=== PATIENT | female | born 1980 | race Caucasian/White ===

== ENCOUNTER 2016-05-20 13:57 | Inpatient (IN) | payer BC ==
[2016-05-20] MEDS ORDERED: INSULIN REGULAR HUMAN REC 100 UNITS in NORMAL SALINE 100 ML IV PRN (14:36)
[2016-05-20] MEDS ORDERED: RINGERS SOLUTION,LACTATED 1,000 ML IV ONE (14:36)
[2016-05-20] MEDS ORDERED: LIDOCAINE HCL 50 ML VIAL PERI PRN (14:36)
[2016-05-20] MEDS ORDERED: OXYTOCIN/DEXTROSE 5%-WATER 30 UNITS/500 ML BAG IV ONE (14:36)
[2016-05-20] MEDS: MISOPROSTOL 100 MCG TABLET VG PRN ×2 (15:16→19:20)
[2016-05-20 15:26] LABS: Albumin * 2.5 gm/dl (3.4-5.0); Anion Gap 15.1 mmol/L (6.8-13.8); BUN/Creatinine Ratio 14.1 (9.0-21.6); Bilirubin, Total 0.4 mg/dL (0.0-1.1); Ca. Corrected For Albumin 10.6 mg/dL (8.4-10.2); Calcium * 9.7 mg/dL (7.9-10.9); Potassium 4.1 mmol/L (3.4-4.6); Total Protein 6.7 gm/dL (6.2-8.2)
--- NOTE | 2016-05-20 23:47 | PN ---
Progess Note - Interim Narrative: 05/20/16 23:46 Patient rating contractions 08/05. Vital signs stable. Status post 2 doses of Cytotec 25 g. FHT: 140 baseline, reassuring Contractions q 1-3 min Cervix: /-1 Impression: Intrauterine at 37-5/7 weeks induction of labor for intrahepatic cholestasis of Plan: Continue present plan
[2016-05-21] MEDS ORDERED: RINGERS SOLUTION,LACTATED 1,000 ML IV PRN (07:23)
[2016-05-21] MEDS ORDERED: NALOXONE HCL 1 MG/1 ML SYRG IV PRN (07:52)
[2016-05-21] MEDS ORDERED: ONDANSETRON HCL/PF 2 MG/ML VIAL IV PRN (07:52)
[2016-05-21] MEDS ORDERED: BUPIVACAINE HCL/0.9 % NACL/PF 250 ML EP PRN (07:52)
[2016-05-21] MEDS ORDERED: fentaNYL CITRATE/PF 50 MCG/ML AMPUL IT SCH (08:00)
[2016-05-21] MEDS: DEXTROSE 5%-LACTATED RINGERS 1,000 ML IV PRN ×2 (08:26→16:44)
--- NOTE | 2016-05-21 08:31 | OR ---
Anesthesia Procedure Note - Anesthesia Procedure Note Narrative: Vital Signs - Last Taken Temp 36.3 C L 11/05/15 14:36 Pulse Resp BP 127/70 11/05/15 14:36 Pulse Ox 05/21/16 08:30 ANESTHESIA PROCEDURE NOTE Date of Procedure: 05/21/2016 Time of procedure: 0800. Performed by: David Quezada CRNA Stretch Box Tender: None. Preprocedure diagnosis: Active labor. Post procedure diagnosis: Same. Procedure: Insertion of labor epidural. Indications: The patient is a 36 -year-old prima para female in active labor requesting labor epidural for pain management. Findings: See below. Details of the procedure: The patient was placed in a sitting position. Back was prepped with DuraPrep. Patient was then draped in a sterile fashion. Lidocaine 1% was infiltrated to the skin and subcutaneous tissues at the level of the L3 4 interspace. The epidural space was identified using a 18-gauge Tuohy needle with [id number] technique. 20 mcg fentanyl was given intrathecally using a 27 ga. spinal needle. Epidural catheter was inserted without difficulty. Negative test dose was elicited using 5 mL of 1.5% preservative-free lidocaine plus epinephrine 1 200,000. The epidural catheter was then taped and secured in place. EBL: Minimal. Fluids: N/A. Specimen: N/A. Post procedure condition: The patient tolerated the procedure well. No complications were noted. Thank you for this consultation. Romero CRNA
--- NOTE | 2016-05-21 12:53 | PN ---
Progess Note - Interim Narrative: 05/21/16 12:52 Patient comfortable with epidural Vital signs stable. Pitocin at 12 mu/min. Blood sugars less than 110 FHT:150 baseline, reassuring Contractions q 2-3 min Cervix: 4-5/90/-2 Impression: Intrauterine at 37 5/7 weeks induction of labor for IHCP, gestational diabetes-stable Plan: Continue present plan
--- NOTE | 2016-05-21 17:25 | PN ---
Progess Note - Interim Narrative: 05/21/16 17:23 Patient comfortable with epidural Vital signs stable. Pitocin at 14 mu/min. FHT:150 baseline, reassuring Contractions q 2-3 min Cervix: Complete/-1 Impression: Intrauterine at 37-6/7 weeks induction of labor for IHCP, gestational diabetes stable Plan: We'll labor patient down for a period of time and then begin pushing
--- NOTE | 2016-05-21 20:37 | OR ---
Operative Report - Dictated Report Narrative: Spontaneous vaginal delivery of viable male at 1955 on 05/21/2016 with Apgars 7 and 9, weighing 3412 g in KAYLA position with nuchal cord 1. Cord clamping delayed 1 minute. Infant's left hand delivered with the chin. Placenta delivered complete, intact, with three vessel cord Estimated blood loss: 100 mL Lacerations: 3 cm second degree vaginal laceration repaired with 3-0 Vicryl Rapide History for MU Definition: * The number of deliveries resulting in a live the patient experienced prior to current hospitalization * The previous delivery of live twins or any live multiple gestation is considered one live event. *If primagravida or nulliparous is documented select zero for the number of previous live births. Live Events: 0
[2016-05-21] MEDS ORDERED: BISACODYL 10 MG SUPP.RECT RC PRN (20:40)
[2016-05-21] MEDS ORDERED: HYDROCORTISONE 30 APPL TUBE TP PRN (20:40)
[2016-05-21] MEDS ORDERED: BENZOCAINE/MENTHOL 81 SPRAY CAN TP PRN (20:40)
[2016-05-21] MEDS ORDERED: SENNOSIDES 8.6 MG TABLET PO PRN (20:40)
[2016-05-21] MEDS ORDERED: OXYTOCIN/DEXTROSE 5%-WATER 30 UNITS/500 ML BAG IV ONE (20:40)
[2016-05-21] MEDS ORDERED: oxyCODONE HCL/ACETAMINOPHEN 1 TAB TABLET PO PRN (20:40)
[2016-05-21] MEDS: GLYCERIN/WITCH HAZEL LEAF 40 APPL BOX TP PRN (21:15)
[2016-05-21] MEDS: IBUPROFEN 800 MG TABLET PO PRN (22:39)
[2016-05-21] MEDS: oxyCODONE HCL/ACETAMINOPHEN 1 TAB TABLET PO PRN (22:40)
[2016-05-22] MEDS: DOCUSATE SODIUM 100 MG CAPSULE PO SCH ×3 (03:08→22:02)
[2016-05-22] MEDS: oxyCODONE HCL/ACETAMINOPHEN 1 TAB TABLET PO PRN ×5 (03:43→22:02)
[2016-05-22] MEDS: PRENATAL VIT#96/FERROUS FUM/FA 1 TAB TABLET PO SCH (08:27)
[2016-05-22] MEDS: IBUPROFEN 800 MG TABLET PO PRN ×3 (08:28→22:03)
--- NOTE | 2016-05-22 13:42 | PN ---
Subjective - Date and Time Seen Date: 05/22/16 Time: 13:39 Objective - Vitals Vitals: Last Vital Signs Temp 36.2 C L 05/22/16 12:37 Pulse 69 05/22/16 12:37 Resp 16 05/22/16 12:37 BP 138/80 05/22/16 12:37 Pulse Ox 96 05/22/16 12:37 FBS 86. 1h PP 166 Patient denies complaints. Lochia wnl Abdomen - soft, nontender Uterus - firm, at umbilicus - 1 No calf tenderness Impression: day #1 - s/p spontaneous vaginal delivery. Intrahepatic cholestasis of - resolving. Gestational diabetes - improving some Plan: Repeat fasting and one-hour postprandial blood sugar in a.m. Snudeep Physician Documentation - Urinary Catheter Management Urethral (Ball) Date of Insertion: 05/21/16 Time of Insertion: 09:06 Date of Removal: 05/21/16 Time of Removal: 19:43
[2016-05-22] MEDS: GLYCERIN/WITCH HAZEL LEAF 40 APPL BOX TP PRN (22:05)
[2016-05-23] MEDS: oxyCODONE HCL/ACETAMINOPHEN 1 TAB TABLET PO PRN ×3 (02:16→10:41)
[2016-05-23 06:51] VITALS: BP 131/75
[2016-05-23] MEDS: PRENATAL VIT#96/FERROUS FUM/FA 1 TAB TABLET PO SCH ×2 (07:25→08:01)
[2016-05-23] MEDS: DOCUSATE SODIUM 100 MG CAPSULE PO SCH ×2 (07:25→08:01)
[2016-05-23] MEDS: IBUPROFEN 800 MG TABLET PO PRN (07:25)
--- NOTE | 2016-05-23 11:17 | PN ---
Subjective - Date and Time Seen Date: 05/23/16 Time: 11:16 Objective - Vitals Vitals: Last Vital Signs Temp 36.7 C 05/23/16 06:38 Pulse 92 05/23/16 06:38 Resp 16 05/23/16 06:38 BP 131/75 05/23/16 06:38 Pulse Ox 98 05/23/16 06:38 Patient denies complaints. Breast feeding. Lochia wnl Abdomen - soft, nontender Uterus - firm, at umbilicus - 2 No calf tenderness Impression: day #2 - s/p spontaneous vaginal delivery. Plan: Routine discharge instructions Cauti Physician Documentation - Urinary Catheter Management Urethral (Ball) Date of Insertion: 05/21/16 Time of Insertion: 09:06 Date of Removal: 05/21/16 Time of Removal: 19:43
== END 2016-05-23 12:00 | disposition home or self-care (01) | DRG 775 ==
LOC: OB 13:57
PROVIDERS: ADMIT Obstetrics & Gynecology; ATTEND Obstetrics & Gynecology
PROC: 10E0XZZ Delivery of Products of Conception, External Approach (ICD-10-PCS; principal; 2016-05-21)
PROC: 4A1HXCZ Monitoring of Products of Conception, Cardiac Rate, External Approach (ICD-10-PCS; 2016-05-21)
PROC: 3E0S3CZ (ICD-10-PCS; 2016-05-21)
DX: O24.420 Gestational diabetes mellitus in childbirth, diet controlled (principal); K83.1 Obstruction of bile duct; O26.62 Liver and biliary tract disorders in childbirth; Z68.41 Body mass index [BMI] 40.0-44.9, adult; O99.214 Obesity complicating childbirth; E66.01 Morbid (severe) obesity due to excess calories; O69.81X0 Labor and delivery complicated by cord around neck, without compression, not applicable or unspecified; Z3A.38 38 weeks gestation of pregnancy; Z37.0 Single live birth

== ENCOUNTER 2016-05-25 22:21 | Emergency (ER) | payer BC ==
[2016-05-25] MEDS ORDERED: NORMAL SALINE 1,000 ML IV ONE (23:52)
--- NOTE | 2016-05-26 00:02 | ERNOTE ---
Dizziness ER Record Date of Service: 05/25/16 Presenting Symptoms: other - light headed Time Seen by Provider: 05/25/16 23:51 Source: patient Exam Limitations: no limitations Immunizations: IMMUNIZATION HX Immunizations Up to Date Yes History of Influenza Vaccine Yes Hx Pneumococcal Vaccination No Allergies/Adverse Reactions: Allergies Allergy/AdvReac Type Severity Reaction Status Date / Time tramadol HCl [From Ultram] Allergy Mild Hives Verified 05/06/16 11:19 codeine [Codeine] AdvReac Mild HEMOPTYSIS Verified 05/06/16 11:19 Home Medications: HOME MEDICATIONS Pnv95/Ferrous Fumarate/FA [ Caplet] 1 each PO DAILY 10/22/15 [Last Taken 05/18/16] Ibuprofen [Motrin] 200 - 800 mg PO Q6H PRN #100 tab 05/21/16 [Last Taken Unknown ] - History of Present Illness Narrative: At about 2000 hours she began to feel light headed which is exacerbated by standing. There has not been any complaints of shortness of breath, fevers/ chills, N/V/D. There has been some mild back pain that is located at the upper left back, that is mild. She has taken Tylenol prior to coming to the ED. s/p vaginal delivery on Friday that was complicated by a significant vaginal tear. Denies any history of PE/DVT or coughing. Timing and Duration: sudden onset Noted on awakening:: No Severity: max: mild Severity: currently: mild Associated Symptoms: Absent: nausea, vomiting Sense of movement: Present: other. Absent: spinning, falling, vague, distinct Fainted/near fainted while:: Absent: standing, sitting Usually:: Present: walks w/o assistance Modifying Factors - (Improves): Reports: other Modifying Factors - (Worsens): Reports: other - standing Prior Treament: Reports: treated by physician Review of Systems - Review of Systems Constitutional: Present: no symptoms reported EYE: Present: no symptoms reported ENT: Present: no symptoms reported Respiratory: Present: no symptoms reported Cardiology: Present: no symptoms reported Gastrointestinal/Abdominal: Present: no symptoms reported Genitourinary: Present: no symptoms reported Musculoskeletal: Present: no symptoms reported Skin: Present: no symptoms reported Neurological: Present: no symptoms reported Endocrine: Present: no symptoms reported Hematologic/Lymphatic: Present: no symptoms reported Psych: Present: no symptoms reported - Patient's Past Medical History Patient History - Medical: Migraines Patient History - Cardiac/Respiratory: No pertinent hx Patient History - Cancer: No Hx of Cancer Patient History - Surgical Procedures: Cholecystectomy, D & C Patient History - Other: None - Social History Living Situations: alone Smoking Status: Former smoker Have you smoked in the past 12 months: No Do you dip or chew tobacco: No Patient requests Smoking Cessation Consult: No Initiate information on Smoking Cessation: No Alcohol Use: none Drug Use: none - Immunizations Immunizations Up to Date: Yes Hx Pneumococcal Vaccination: No History of Influenza Vaccine: Yes Physical Exam - Physical Exam General Appearance: Present: no apparent distress Eye Exam: Normal inspection: bilateral Ears, Nose, Throat: Present: normal ENT inspection, hearing grossly normal Neck: Present: normal inspection Respiratory: Present: no respiratory distress Cardiovascular/Chest: Present: tachycardia Gastrointestinal/Abdominal: Present: nondistended Back Exam: Present: normal inspection Extremity Exam: Present: normal inspection Neurological Exam: Present: alert, oriented, normal mood/affect, 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 Vital Signs: Vital Signs 05/25/16 22:47 Temperature 36.8 C Pulse Rate 65 Respiratory 18 Rate Blood Pressure 156/96 O2 Sat by Pulse 98 Oximetry - Progress/Reassessment Chief Complaint: Dizziness Progress:: Unchanged Progress Note-Subjective: 05/26/16 00:01 The patient refused any lab work to be done. 05/26/16 02:18 Allowd the lab work to be done but refused the IV. The patient was instructed to drink one liter of fluids; so she drank one cup. Then told the staff that she was ready to leave. The patient was informed that it would be useful to determine if the heart rate decreased after hydration. A PE is unlikely given the lack of symptoms. The patient was more concerned about leaving the door closed that investigating her complaints. The nurse operations and maintenance supervisor was present during the last encounter with the patient, which was just prior to her signing out AMA. Departure Clinical Impression: Volume depletion - Departure Disposition: Against medical advice Condition: Good Instructions: Dehydration, Adult, [id number] Print Language: [place]ian Additional Instructions: Return to the ED as needed. Referrals: Francisco Siegel DO [Primary Care Provider] -
[2016-05-26 00:17] LABS: Hemoglobin 12.5 gm/dL (12.5-16.0); Mean Cell Volume 91.4 fl (78-100); Mean Corpuscular Hemoglobin 30.9 pg (27-31); Mean Corpuscular Hgb Conc 33.8 g/dl (32-36); Mean Platelet Volume 10.3 fl (6.0-9.5); Neutrophil % 54.6 % (42-75.0); Platelet Count 262 K/mm3 (150-450); Red Blood Count 4.05 M/mm3 (4.2-5.4); Red Cell Distribution Width 12.7 % (11.5-14.0); White Blood Count 7.4 K/mm3 (4.0-10.5)
[2016-05-26 00:24] LABS: Anion Gap 16.2 mmol/L (6.8-13.8); BUN/Creatinine Ratio 17.8 (9.0-21.6); Calcium * 9.6 mg/dL (7.9-10.9); Carbon Dioxide 23.6 mmol/L (24-32.6); Potassium 3.8 mmol/L (3.4-4.6)
[2016-05-26 02:45] VITALS: BP 140/70
== END 2016-05-26 01:29 | disposition left against medical advice (07) ==
LOC: ER 22:21
DX: E86.9 Volume depletion, unspecified (principal); Z87.891 Personal history of nicotine dependence

== ENCOUNTER 2016-06-09 20:34 | Emergency (ER) | payer BC ==
--- NOTE | 2016-06-09 21:26 | ERNOTE ---
ER Female HPI Date of Service: 06/09/16 Stated Complaint: VAGINAL PAIN.BLEEDING HAD BABY 05/21/16 Presenting Symptoms: other - patient 36-year-old female 1 para 1 with delivery 05/17/2016. Patient was second degree episiotomy with sutures placed. She's had pain in the area above since time of delivery. She's been using ibuprofen 800 mg with food every 8 hours and alternating Tylenol with the above. Patient also has been using dermoplast and witch igor along with sitz baths without significant relief. Patient reports pain remains constant and aggravated by bearing down to urinate. She's had no urinary burning or frequency but states has difficulty completing her void secondary to discomfort outlined above. Patient states it hurts just to sit secondary to the pain outlined earlier. Time Seen by Provider: 06/09/16 21:14 Source: patient Exam Limitations: no limitations Immunizations: IMMUNIZATION HX Immunizations Up to Date Yes History of Influenza Vaccine Yes Hx Pneumococcal Vaccination No Allergies/Adverse Reactions: Allergies tramadol HCl [From [facility]] Allergy (Mild, Verified 07/06/16 14:14) Hives itching codeine [Codeine] Adverse Reaction (Mild, Verified 07/06/16 14:14) HEMOPTYSIS sick Home Medications: HOME MEDICATIONS Ibuprofen [Motrin] 200 - 800 mg PO Q6H PRN #100 tab 05/21/16 [Last Taken Unknown ] Gabapentin 600 mg PO BID 06/24/16 [Last Taken Unknown] - History of Present Illness Date (Duration): 06/09/16 Time (Timing): 21:22 Timing: Present: constant Quality: Present: moderate Onset Location: Present: vaginal Radiation: Present: none Activities at Onset: Present: other - see above Prior Abdominal Problems: Present: none Sexual [place] History: Present: not active Modifying Factors - (Improves): Present: analgesics, other - patient with mild relief using treatments outlined earlier Modifying Factors - (Worsens): Present: urinating Associated Symptoms: Present: denies symptoms Prior Treatment: Present: recently seen, treated by physician Review of Systems - Review of Systems Constitutional: Present: no symptoms reported EYE: Present: no symptoms reported ENT: Present: no symptoms reported Respiratory: Present: no symptoms reported Cardiology: Present: no symptoms reported Gastrointestinal/Abdominal: Present: no symptoms reported Genitourinary: Present: pain, other - patient continues to have persistent vaginal bleeding since time of delivery with his friend gradually decreasing in amount. Musculoskeletal: Present: no symptoms reported Skin: Present: no symptoms reported Neurological: Present: no symptoms reported Endocrine: Present: no symptoms reported Hematologic/Lymphatic: Present: no symptoms reported Psych: Present: no symptoms reported - Patient's Past Medical History Patient History - Medical: No pertinent hx, Migraines Patient History - Cardiac/Respiratory: No pertinent hx Patient History - Cancer: No Hx of Cancer Patient History - Surgical Procedures: Cholecystectomy, D & C Patient History - Other: None - Social History Living Situations: home Abuse History: No History of abuse Psych History: No pertinent hx Smoking Status: Never smoker Have you smoked in the past 12 months: No Do you dip or chew tobacco: No Alcohol Use: none Drug Use: none - Immunizations Immunizations Up to Date: Yes Hx Pneumococcal Vaccination: No History of Influenza Vaccine: Yes Physical Exam - Physical Exam General Appearance: Present: wd/wn, alert, mild distress Eye Exam: Normal inspection: bilateral, PERRL: bilateral, EOMI: bilateral Ears, Nose, Throat: Present: normal ENT inspection, H, normal pharynx Neck: Present: normal inspection, nontender Respiratory: Present: no respiratory distress, normal breath sounds, no accessory muscle use, chest nontender, lungs clear Cardiovascular/Chest: Present: regular rate, rhythm, no murmur, normal peripheral pulses Peripheral Pulses: N=norm/S=strong/W=weak/B=bound/A=absent: Carotid (R): Normal , Carotid (L): Normal, Dorsalis-pedis (R): Normal, Dorsalis-pedis (L): Normal Gastrointestinal/Abdominal: Present: normal bowel sounds, nontender, nondistended, soft, no organomegaly Rectal Exam: Present: deferred Back Exam: Present: normal inspection, normal range of motion, no CVA tenderness , no vertebral tenderness Extremity Exam: Present: normal inspection, non-tender, no edema, normal range of motion Neurological Exam: Present: alert, oriented, normal mood/affect, no motor/ sensory deficits Lymphatic Exam: Present: no adenopathy ED Progress - Date and Time Seen: Date and Time: 06/09/16 22:36 Vaginal exam shows no tear labial folds or other vaginal structures. Urinalysis is negative. Patient without symptomatic relief from topical lidocaine utilized during above examination. - Results and Orders Patient's Lab Results:: I have reviewed the patient's lab results. - Vital Signs Patient's Vital Signs:: I have reviewed the patient's vital signs. Vital Signs: Vital Signs 06/09/16 20:39 Temperature 36.6 C Pulse Rate 73 Respiratory 14 Rate Blood Pressure 135/88 O2 Sat by Pulse 99 Oximetry - Progress/Reassessment Chief Complaint: Genitourinary Problem Departure Clinical Impression: Postoperative pain, on home postsurgical pain or - Departure Disposition: Home Follow Up Needed Condition: Good Additional Instructions: Percocet 1-2 tablets every 8 hours for vaginal pain related to recent surgical procedure. Please push fluids and activity to minimize chances of constipation. If constipation should develop please purchase [id number] stool softener. All further narcotics to be provided by her primary provider or GENERAL HARDWARE SALESPERSON Referrals: Francisco Siegel DO [Primary Care Provider] -
--- OUTSIDE RECORDS SUMMARY | 2016-06-09 21:29 | XMS REPORT | Continuity of Care Document ---
:1980 Author Organization [facility] ([facility]) Address [address] [place] [address] Phone [phone] Care Team Providers Name Role Phone Amanuel Ramirez Primary Care Provider [phone] Source Comments This disclosure is being made pursuant to the Care Everywhere program, applicable federal and state laws, and may not contain all informaitonavailable regarding this patient.[facility] ([facility]) Active Allergies and Adverse Reactions Allergen Noted Date Severity Reactions Comments Codeine 10/15/2008 Nausea & Vomiting Tramadol 07/10/2015 Rash Current Medications Prescription Sig. Disp. Refills Start Date End Date Status metFORMIN 750 mg XR Take 750 mg by Active tablet mouth 2 times daily. propranolol 60 mg XR Take 60 mg by Active capsule mouth daily. SUMAtriptan 100 mg tablet Take 100 mg by Active mouth daily as needed May repeat in 2 hours if needed . cyclobenzaprine 10 mg Take 1 tablet 9 tablet 0 07/11/2015 Active tablet (10 mg total) by mouth 3 times daily as needed. Active Problems Problem Noted Date Neck pain 02/13/2012 Left ankle pain 02/13/2012 Health education/counseling 02/13/2012 Infertility, female 11/21/2011 Routine general medical examination at a health care facility 11/21/2011 Back pain 04/10/2009 Immunizations Name Dates Previously Given Next Due Novel Influenza H1N1 04/10/2009 Tdap 11/21/2011 Social History Tobacco Use Types Packs/Day Years Used Date Current Every Day Smoker 1 10 Smokeless Tobacco: Never Used Alcohol Use Drinks/Week oz/Week Comments No 1 Shots of liquor 0.5 Last Filed Vital Signs Vital Sign Reading Time Taken Blood Pressure 149/92 07/10/2015 10:55 PM CDT Pulse 90 07/10/2015 10:55 PM CDT Temperature 36.7 C (98.1 F) 07/10/2015 10:55 PM CDT Respiratory Rate 16 07/10/2015 10:55 PM CDT Height 1.603 m (5' 3.1") 04/27/2012 1:39 PM CRATE BUILDER Weight 100.29 kg (221 lb 1.6 oz) 04/27/2012 1:39 PM CRATE BUILDER Body Mass Index 39.03 04/27/2012 1:39 PM CRATE BUILDER Oxygen Saturation 99% 07/10/2015 10:55 PM CDT Plan of Care Patient Goal Type Goal Diet Reduce sugar intake to X grams per day Weight Weight below 91 kg (200 lb) Health Maintenance Due Date Last Done Comments Hepatitis B Vaccine (1 of 3 - Primary 1980 Series) MMR Vaccine 1999 Varicella Vaccine (1 of 2 - Adult - No 1999 Evidence of Immunity) Pneumococcal Vaccine (1 of 1 - PPSV23) 2000 Cervical Cancer Screening 2011 Influenza Vaccine: Seasonal (#1) 11/27/2015 Lipid Disorder Screening 11/20/2016 11/21/2011, 04/10/2009 Td Vaccine 11/20/2021 11/21/2011, 04/10/2006 Tdap Vaccine Completed 11/21/2011, 11/21/2011 Results from Last 3 Months Not on file
[2016-06-09] MEDS ORDERED: LIDOCAINE HCL 10 APPL CARTRIDGE ONE (21:34)
[2016-06-09 22:22] LABS: Urine Bilirubin Negative (NEGATIVE); Urine Blood 25 /ul (NEGATIVE); Urine Ketone Negative (NEGATIVE); Urine Nitrite Negative (NEGATIVE); Urine Protein Negative (NEGATIVE); Urine Urobilinogen Normal (NORMAL); Urine pH 6.5 pH (5.0-7.0)
[2016-06-09 22:25] LABS: Urine Appearance Clear; Urine Bacteria None Seen; Urine Color Pale Yellow; Urine RBC 0-5 /hpf (0-5); Urine WBC 0-5 /hpf (0-5)
[2016-06-09] MEDS ORDERED: oxyCODONE HCL/ACETAMINOPHEN 1 TAB TABLET PO ONE (22:40)
[2016-06-09] MEDS ORDERED: oxyCODONE HCL/ACETAMINOPHEN 1 TAB TABLET ONE (22:49)
[2016-06-09 22:57] VITALS: BP 133/71
== END 2016-06-09 23:04 | disposition home or self-care (01) ==
LOC: ER 20:34
DX: R10.2 Pelvic and perineal pain (principal); G89.18 Other acute postprocedural pain; Z98.890 Other specified postprocedural states

== ENCOUNTER 2016-07-06 14:07 | Emergency (ER) | payer BC ==
[2016-07-06 14:14] VITALS: BP 149/109
[2016-07-06] MEDS ORDERED: KETOROLAC TROMETHAMINE 60 MG/2 ML VIAL IM ONE ×2 (14:20→14:21)
--- OUTSIDE RECORDS SUMMARY | 2016-07-06 14:30 | XMS REPORT | Continuity of Care Document ---
:1980 Author Organization [facility] ([facility]) Address [address] [place] [address] Phone [phone] Care Team Providers Name Role Phone Amanuel Ramirez Primary Care Provider [phone] Source Comments This disclosure is being made pursuant to the Care Everywhere program, applicable federal and state laws, and may not contain all informaitonavailable regarding this patient.[facility] ([facility]) Active Allergies and Adverse Reactions Allergen Noted [...] 1.603 m (5' 3.1") 04/27/2012 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
--- NOTE | 2016-07-06 15:16 | ERNOTE ---
Back Pain ER HPI Date of Service: 07/06/16 Presenting Symptoms: hx chronic back pain Time Seen by Provider: 07/06/16 14:09 Source: patient Exam Limitations: no limitations Immunizations: IMMUNIZATION HX Immunizations Up to Date Yes History of Influenza Vaccine Yes Hx Pneumococcal Vaccination No Allergies/Adverse Reactions: Allergies tramadol HCl [From Ultram] Allergy (Mild, Verified 07/06/16 14:14) Hives itching codeine [Codeine] Adverse Reaction (Mild, Verified 07/06/16 14:14) HEMOPTYSIS sick Home Medications: HOME MEDICATIONS Ibuprofen [Motrin] 200 - 800 mg PO Q6H PRN #100 tab 05/21/16 [Last Taken Unknown ] Gabapentin 600 mg PO BID 06/24/16 [Last Taken Unknown] Narrative: 36 y/o female presenting to the emergency room for right-sided flank pain and back pain. States this pain started on Friday comes and goes feels like tight stabbing pain on the right flank area. States that pain will go up to 10 at times and It will stop and go down to 0. Feels like a spasm. Patient has a history of chronic back pain. Date (Duration): 07/06/16 Timing: Reports: intermittent Quality/Severity: Reports: sharpness Location of pain: Reports: lower back - right side. does radiate to right buttock Activities at Onset: Reports: none Recent Injury?: Reports: no Possible Precipitating Factor: Reports: none Modifying Factors - (Improves): Reports: nothing Modifying Factors - (Worsens): Reports: movement flexion Associated Symptoms: Denies: fever/chills, sweating, constipation/incontinence, problems urinating, difficulty walking, lightheadedness, numbess/weakness in legs Review of Systems - Review of Systems Constitutional: Present: no symptoms reported, See HPI. Absent: fever, chills, diaphoresis, weakness, malaise EYE: Present: no symptoms reported ENT: Present: no symptoms reported Respiratory: Present: no symptoms reported Cardiology: Present: no symptoms reported Gastrointestinal/Abdominal: Present: no symptoms reported Genitourinary: Present: no symptoms reported - negative UA at walk in clinic Musculoskeletal: Present: See HPI, back pain, muscle pain. Absent: neck pain Skin: Present: no symptoms reported Neurological: Present: no symptoms reported Endocrine: Present: no symptoms reported Hematologic/Lymphatic: Present: no symptoms reported Psych: Present: no symptoms reported - Patient's Past Medical History Patient History - Medical: No pertinent hx, Chronic Pain - back, Migraines Patient History - Cardiac/Respiratory: No pertinent hx Patient History - Cancer: No Hx of Cancer Patient History - Surgical Procedures: Cholecystectomy, D & C Patient History - Other: None - Social History Living Situations: home Abuse History: No History of abuse Psych History: No pertinent hx Alcohol Use: none Drug Use: none - Immunizations Immunizations Up to Date: Yes Hx Pneumococcal Vaccination: No History of Influenza Vaccine: Yes Physical Exam - Physical Exam General Appearance: Present: wd/wn, alert, no apparent distress Eye Exam: Normal inspection: bilateral Ears, Nose, Throat: Present: normal ENT inspection Neck: Present: normal inspection Respiratory: Present: no respiratory distress Cardiovascular/Chest: Present: regular rate, rhythm Peripheral Pulses: N=norm/S=strong/W=weak/B=bound/A=absent: Dorsalis-pedis (R): Normal, Dorsalis-pedis (L): Normal Gastrointestinal/Abdominal: Present: normal bowel sounds Back Exam: Present: CVA tenderness (R), vertebral tenderness, muscle spasm - right straight leg raise reproduced pain. also flexion of right knee with internal rotation of hip and back would reproduce the pain. Extremity Exam: Present: normal inspection, no edema, decreased range of motion. Absent: joint swelling, extremity edema Neurological Exam: Present: alert, oriented, normal mood/affect, no motor/ sensory deficits Skin Exam: Present: normal color Lymphatic Exam: Present: no adenopathy ED Progress - Vital Signs Patient's Vital Signs:: I have reviewed the patient's vital signs. Vital Signs: Vital Signs 07/06/16 14:11 Temperature 36.6 C Pulse Rate 90 Respiratory 12 Rate Blood Pressure 149/109 O2 Sat by Pulse 100 Oximetry - Progress/Reassessment Chief Complaint: Back Pain Progress:: Improved Progress Note-Subjective: 07/06/16 15:12 improved with tx in ed. Departure Clinical Impression: Low back pain Qualifiers: Chronicity: unspecified Back pain laterality: right Sciatica presence: without sciatica Qualified Code(s): M54.5 - Low back pain - Departure Disposition: Home self-care Condition: Stable Instructions: Back Pain, Adult Additional Instructions: Continue [id number] pain medications. Ice or heat whichever makes it feel better. Follow up with her primary care in 2-3 days. Return to the emergency room if symptoms persist or become worse or uncontrolled with over- the-counter pain medications Referrals: Amanuel Ramirez, [Primary Care Provider] -
== END 2016-07-06 15:19 | disposition home or self-care (01) ==
LOC: ER 14:07
DX: M54.5 Low back pain (principal)

== ENCOUNTER 2016-08-20 07:56 | Emergency (ER) | payer BC, MEDICAID ==
[2016-08-20] MEDS ORDERED: PROMETHAZINE HCL 12.5 MG in DEXTROSE 5 % IN WATER 50 ML IV ONE ×2 (08:11)
[2016-08-20] MEDS ORDERED: NORMAL SALINE 1,000 ML IV ONE (08:11)
[2016-08-20] MEDS ORDERED: DEXTROSE 4 GM/TAB BTL PO ONE (08:12)
[2016-08-20] MEDS ORDERED: DEXTROSE 4 GM/TAB BTL ONE (08:13)
[2016-08-20 08:33] LABS: Hematocrit 41.8 % (37.0-47.0); Hemoglobin 14.6 gm/dL (12.5-16.0); Mean Cell Volume 88.6 fl (78-100); Mean Corpuscular Hemoglobin 30.9 pg (27-31); Mean Corpuscular Hgb Conc 34.9 g/dl (32-36); Mean Platelet Volume 10.4 fl (6.0-9.5); Neutrophil # 3.9 K/mm3 (1.3-6.0); Neutrophil % 48.2 % (42-75.0); Platelet Count 260 K/mm3 (150-450); Red Blood Count 4.72 M/mm3 (4.2-5.4); Red Cell Distribution Width 11.9 % (11.5-14.0)
[2016-08-20 08:42] LABS: Urine Appearance Clear; Urine Bacteria None Seen; Urine Bilirubin Negative (NEGATIVE); Urine Blood Negative /ul (NEGATIVE); Urine Color Yellow; Urine Ketone Negative (NEGATIVE); Urine Nitrite Negative (NEGATIVE); Urine Protein Negative (NEGATIVE); Urine RBC None Seen /hpf (0-5); Urine Specific Gravity <=1.005 SP.GR. (1.005-1.010); Urine Urobilinogen Normal (NORMAL); Urine WBC None Seen /hpf (0-5)
[2016-08-20 08:52] LABS: Albumin * 3.8 gm/dl (3.4-5.0); BUN/Creatinine Ratio 14.5 (9.0-21.6); Bilirubin, Total 0.4 mg/dL (0.0-1.1); Ca. Corrected For Albumin 9.8 mg/dL (8.4-10.2); Carbon Dioxide 25.7 mmol/L (24-32.6); Potassium 3.7 mmol/L (3.4-4.6); Total Protein 7.8 gm/dL (6.2-8.2)
--- OUTSIDE RECORDS SUMMARY | 2016-08-20 08:58 | XMS REPORT | Continuity of Care Document ---
:1980 Author Organization [facility] ([facility]) Address [address] [place] [address] Phone [phone] Care Team Providers Name Role Phone Amanuel Ramirez Primary Care Provider [phone] Source Comments This disclosure is being made pursuant to the Care Everywhere program, applicable federal and state laws, and may not contain all informaitonavailable regarding this patient.[facility] ([facility]) Active Allergies and Adverse Reactions Allergen Noted [...] 1.603 m (5' 3.1") 04/27/2012 1:39 PM [employer] Weight 100.29 kg (221 lb 1.6 oz) 04/27/2012 1:39 PM [employer] Body Mass Index 39.03 04/27/2012 1:39 PM [employer] Oxygen Saturation 99% 07/10/2015 10:55 PM CDT [...]
[2016-08-20 10:40] VITALS: BP 112/57
--- NOTE | 2016-08-20 10:53 | ERNOTE ---
Dyspnea - Date Date of Service: 08/20/16 - General Presenting Symptoms: other - dizzy Time Seen by Provider: 08/20/16 08:08 Source: patient Exam Limitations: no limitations - Immun/Allergies/Home Medications Immunizations: IMMUNIZATION HX Immunizations Up to Date Yes History of Influenza Vaccine Yes Hx Pneumococcal Vaccination No Allergies/Adverse Reactions: Allergies tramadol HCl [From Ultram] Allergy (Mild, Verified 08/20/16 08:11) Hives itching codeine [Codeine] Adverse Reaction (Mild, Verified 08/20/16 08:11) HEMOPTYSIS sick Home Medications: HOME MEDICATIONS NK [No Home Medication] 08/20/16 [Last Taken Unknown] - History of Present Illness Narrative: patient presents to the ED for feeling dizzy. She relates that this am she started to feel dizzy (lightheaded, not spinning). She noticed some very mild SOB. No focal numbness, tingling, weakness. She has mild LAND with this. She relates she has a Hx of migraines and this feels something like her migraine with aura. No fever. no recent illnesses. No focal N/T/W. No CP, no calf pain or leg swelling. no abdominal pain. no vision changes. Severity: moderate Initiating event: Reports: none. Denies: upper resp illness Frequency of episodes: Reports: other - rare Modifying Factors - (Improves): Reports: nothing Modifying Factors (Worsens): Reports: nothing Associated Symptoms-Dyspnea: Reports: dizziness. Denies: fever/chills, chest pain/discomfort, cough Prior Treatment: Denies: recently seen Review of Systems - Review of Systems Constitutional: Absent: fever EYE: Absent: vision changes ENT: Absent: ear pain, sore throat Respiratory: Present: See HPI Cardiology: Absent: chest pain Gastrointestinal/Abdominal: Absent: abdominal pain Genitourinary: Absent: dysuria Neurological: Absent: weakness All Other Systems: All systems neg except as marked - Patient's Past Medical History Patient History - Medical: Chronic Pain, Migraines Patient History - Cardiac/Respiratory: No pertinent hx Patient History - Cancer: No Hx of Cancer Patient History - Surgical Procedures: Cholecystectomy, D & C Patient History - Other: None LMP (females 10-50): last week - Social History Living Situations: home Abuse History: No History of abuse Psych History: No pertinent hx Alcohol Use: none Drug Use: none - Immunizations Immunizations Up to Date: Yes Hx Pneumococcal Vaccination: No History of Influenza Vaccine: Yes Physical Exam - Physical Exam General Appearance: Present: alert, no apparent distress Eye Exam: Normal inspection: bilateral, PERRL: bilateral Ears, Nose, Throat: Present: normal ENT inspection. Absent: abnormal TM (R), abnormal TM (L), pharyngeal erythema, dry mucous membranes Neck: Present: normal inspection, other - supple Respiratory: Present: no respiratory distress, normal breath sounds, no accessory muscle use, lungs clear Cardiovascular/Chest: Present: regular rate, rhythm Gastrointestinal/Abdominal: Present: normal bowel sounds, nondistended, soft. 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 Absent: facial droop, motor weakness Skin Exam: Present: normal color. Absent: skin rash ED Progress - Results and Orders Patient's Lab Results:: I have reviewed the patient's lab results. - Vital Signs Patient's Vital Signs:: I have reviewed the patient's vital signs. Vital Signs: Vital Signs 08/20/16 08/20/16 08/20/16 08:00 08:33 08:54 Temperature 37 C Pulse Rate 103 H 78 Respiratory 14 15 Rate Blood Pressure 157/74 143/72 157/74 O2 Sat by Pulse 96 95 Oximetry 08/20/16 08/20/16 08/20/16 09:02 09:21 09:42 Temperature Pulse Rate 89 84 103 H Respiratory 14 Rate Blood Pressure 148/77 122/68 122/81 O2 Sat by Pulse 93 94 96 Oximetry 08/20/16 08/20/16 10:12 10:35 Temperature 36.8 C Pulse Rate 84 70 Respiratory 18 14 Rate Blood Pressure 99/48 112/57 O2 Sat by Pulse 97 97 Oximetry - EKG EKG: NSR EKG read: Interp. by me EKG Comments: NSR rate 97. Non-specific ST/T wave chanegs. No STEMI. - X-Ray X-Ray #1 X-Ray: chest Interpretation: Reviewed by me X-ray Comments: I reviewed CXR report per radiology - Progress/Reassessment Chief Complaint: Dyspnea Progress Note-Subjective: 04/25/17 10:45 She was feeling much improved. Nothing to suggest ACS, PE aortic dissection. With d-dimer not elevated, no indication for Chest CT. The more she rested she felt this was a migraine with aura like she has had before. No stroke Sx. Not worst LAND of life. I discussed head CT with her but she declines this. She wishes to go home at this point. No clear life threat noted. I discussed warning signs and reasons to return as well as the need for close f/u. Departure Clinical Impression: Dizzy - Departure Disposition: Home self-care Additional Instructions: Go to your appointment with Dr Ramirez August 22 at 3pm. Rest. Fluids. Return for fever, headache, vomiting, weakness or if your condition worsens or changes in any way. Referrals: Amanuel Ramirez, [Primary Care Provider] -
== END 2016-08-20 11:04 | disposition home or self-care (01) ==
LOC: ER 07:56
DX: R42 Dizziness and giddiness (principal)

== ENCOUNTER 2016-09-17 19:17 | Emergency (ER) | payer BC, MEDICAID ==
[2016-09-17] MEDS ORDERED: ACETAMINOPHEN 500 MG TABLET PO ONE (19:38)
--- OUTSIDE RECORDS SUMMARY | 2016-09-17 19:44 | XMS REPORT | Continuity of Care Document ---
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
[2016-09-17] MEDS ORDERED: hydrOXYzine PAMOATE 25 MG CAPSULE PO ONE (19:52)
[2016-09-17] MEDS ORDERED: hydrOXYzine PAMOATE 25 MG CAPSULE ONE (19:57)
[2016-09-17 19:59] LABS: Hematocrit 39.7 % (37.0-47.0); Hemoglobin 13.7 gm/dL (12.5-16.0); Mean Cell Volume 89.4 fl (78-100); Mean Corpuscular Hemoglobin 30.9 pg (27-31); Mean Corpuscular Hgb Conc 34.5 g/dl (32-36); Mean Platelet Volume 10.2 fl (6.0-9.5); Neutrophil # 5.3 K/mm3 (1.3-6.0); Neutrophil % 63.9 % (42-75.0); Platelet Count 244 K/mm3 (150-450); Red Blood Count 4.44 M/mm3 (4.2-5.4); Red Cell Distribution Width 11.9 % (11.5-14.0); White Blood Count 8.4 K/mm3 (4.0-10.5)
--- NOTE | 2016-09-17 20:00 | ERNOTE ---
<Driss Dominguez - Last Filed: 09/17/16 19:28> Medical Problem HPI - General Chief Complaint: General Assessment Time Seen by Provider: 09/17/16 19:28 Source: patient Exam Limitations: no limitations - Immun/Allergies/Home Medications Immunizations: IMMUNIZATION HX Immunizations Up to Date Yes History of Influenza Vaccine Yes Hx Pneumococcal Vaccination No Allergies/Adverse Reactions: Allergies tramadol HCl [From Ultram] Allergy (Mild, Verified 08/20/16 08:11) Hives itching codeine [Codeine] Adverse Reaction (Mild, Verified 08/20/16 08:11) HEMOPTYSIS sick Home Medications: HOME MEDICATIONS NK [No Home Medication] 08/20/16 [Last Taken Unknown] - History of Present History Narrative: Patient was involved with a big argument with her and shows in moderate to severe emotional distress at this point. He complains of muscle spasms on the right side of the neck and some low-grade eye blurring. She is also having some back pain and at the same time. Timing: constant Severity: moderate Review of Systems - Review of Systems Constitutional: Present: See HPI EYE: Present: no symptoms reported ENT: Present: no symptoms reported Respiratory: Present: no symptoms reported Cardiology: Present: no symptoms reported Gastrointestinal/Abdominal: Present: no symptoms reported Genitourinary: Present: no symptoms reported Musculoskeletal: Present: neck pain - on the right side Skin: Present: no symptoms reported Neurological: Present: no symptoms reported Endocrine: Present: no symptoms reported Hematologic/Lymphatic: Present: no symptoms reported Psych: Present: anxiety, depressed, emotional problems - Patient's Past Medical History Patient History - Medical: Anxiety, Chronic Pain, Depression, Migraines Patient History - Cardiac/Respiratory: No pertinent hx Patient History - Cancer: No Hx of Cancer Patient History - Surgical Procedures: Cholecystectomy, D & C Patient History - Other: None - Social History Living Situations: home Abuse History: No History of abuse Psych History: Hx of Anxiety, Hx of Depression Smoking Status: Never smoker Have you smoked in the past 12 months: No Do you dip or chew tobacco: No Alcohol Use: none Drug Use: none - Immunizations Immunizations Up to Date: Yes Hx Pneumococcal Vaccination: No History of Influenza Vaccine: Yes Physical Exam - Physical Exam General Appearance: Present: wd/wn, alert, moderate distress Eye Exam: Normal inspection: bilateral, PERRL: bilateral Ears, Nose, Throat: Present: normal ENT inspection, H, normal pharynx Neck: Present: tender lateral - right lateral neck region Respiratory: Present: no respiratory distress, normal breath sounds, no accessory muscle use, chest nontender, lungs clear Cardiovascular/Chest: Present: regular rate, rhythm, no murmur, normal peripheral pulses Gastrointestinal/Abdominal: Present: normal bowel sounds, nontender, nondistended, soft, no organomegaly Rectal Exam: Present: deferred Back Exam: Present: normal inspection, normal range of motion Extremity Exam: Present: normal inspection, non-tender, no edema, normal range of motion Neurological Exam: Present: alert, oriented, normal mood/affect, other - pt is very distressed as she had a baby 4 months ago and had to move out of the house she shares with her for the past 13 years. Pt is tearful and not easily comforted. Skin Exam: Present: normal color, warm/dry Lymphatic Exam: Present: no adenopathy ED Progress - Results and Orders Patient's Lab Results:: I have reviewed the patient's lab results. - Vital Signs Patient's Vital Signs:: I have reviewed the patient's vital signs. Vital Signs: Vital Signs 09/17/16 09/17/16 19:17 19:19 Temperature 36.7 C 36.4 C L Pulse Rate 147 H 101 H Respiratory 24 H Rate Blood Pressure 96/23 141/94 O2 Sat by Pulse 96 95 Oximetry - Progress/Reassessment Chief Complaint: General Assessment - Transfer of Care Physician Sign Out: Driss Dominguez Receiving Physician: Brice Tamayo Plan - Plan Plan: It would appear at this juncture that most of her symptoms are directly related to the profound anxiety that she is having. We have to be somewhat cautious about what medications we give her because she is lactating and breast-feeding. I did give her 1 g of Tylenol by mouth and 50 mg of Vistaril by mouth to try to help lessen the symptoms some. She'll be turned over to Dr. Tamayo and he will manage her care after I go home. Departure - Departure Clinical Impression: Anxiety as acute reaction to exceptional stress Cervical muscle strain Qualifiers: Encounter type: initial encounter Qualified Code(s): S16.1XXA - Strain of muscle, fascia and tendon at neck level, initial encounter Disposition: Home Follow Up Needed Condition: Good Instructions: Panic Attacks, [id number] Additional Instructions: Warm packs/ heating pad to your neck on low heat for 20-30 minutes at a time. Talk with Dr. Ramirez about working on your neck if it continues to bother you Referrals: Amanuel Ramirez, [Primary Care Provider] - <Brice Tamayo - Last Filed: 09/18/16 06:15> Medical Problem HPI - Immun/Allergies/Home Medications Immunizations: IMMUNIZATION HX Immunizations Up to Date Yes History of Influenza Vaccine Yes Hx Pneumococcal Vaccination No ED Progress - Vital Signs Vital Signs: Vital Signs 09/17/16 09/17/16 09/17/16 19:17 19:19 19:52 Temperature 36.7 C 36.4 C L Pulse Rate 147 H 101 H 90 Respiratory 24 H 18 Rate Blood Pressure 96/23 141/94 140/94 O2 Sat by Pulse 96 95 96 Oximetry 09/17/16 20:25 Temperature Pulse Rate 97 Respiratory 18 Rate Blood Pressure 131/79 O2 Sat by Pulse 98 Oximetry - X-Ray X-Ray #1 X-Ray: c-spine Interpretation: Reviewed by me X-ray Comments: IMPRESSION: 1. NO ACUTE FRACTURE OR DISLOCATION. 2. DEGENERATIVE DISC DISEASE AT C5-6. Electronically signed by Isak Armenta D.O.. - CT/Ultrasound CT/Ultrasound Narrative: CT head without contrast Findings: The brain parenchyma is normal density with preservation of travis matter/white matter differentiation throughout. There is no mass effect or midline shift. No intra-axial or extra axial blood products identified. The visualized paranasal sinuses and mastoid air cells are clear. The skull base and calvarium are intact. IMPRESSION: NORMAL EXAM. Electronically signed by Isak Armenta D.O.. - Progress/Reassessment Progress:: Improved Progress Note-Subjective: assumed care from Dr. Dominguez at 19:00. Pt waiting for CT scan. Pt feeling better after being in the ED. Pt unsure if hydroxyzine was of any benefit. CT head negative and C-spine nothing acute. Discussed panic attacks and symptoms with patient. Encouraged her to see her PCP for OMT if her neck does not continue to improve. Pt expresses agreement
[2016-09-17 20:16] LABS: Albumin * 3.6 gm/dl (3.4-5.0); Anion Gap 12.3 mmol/L (6.8-13.8); Bilirubin, Total 0.3 mg/dL (0.0-1.1); Ca. Corrected For Albumin 8.7 mg/dL (8.4-10.2); Calcium * 8.7 mg/dL (7.9-10.9); Carbon Dioxide 28.4 mmol/L (24-32.6); Potassium 3.7 mmol/L (3.4-4.6); Total Protein 7.1 gm/dL (6.2-8.2)
[2016-09-17 21:35] VITALS: BP 127/76
== END 2016-09-17 21:34 | disposition home or self-care (01) ==
LOC: ER 19:17
DX: S16.1XXA Strain of muscle, fascia and tendon at neck level, initial encounter (principal); F41.1 Generalized anxiety disorder; F43.0 Acute stress reaction; X50.9XXA Other and unspecified overexertion or strenuous movements or postures, initial encounter

== ENCOUNTER 2016-09-26 12:38 | Emergency (ER) | payer BC, MEDICAID ==
[2016-09-26 15:18] VITALS: BP 152/80
--- NOTE | 2016-09-26 15:31 | ERNOTE ---
Head Injury HPI - General Time Seen by Provider: 09/26/16 15:26 Source: patient Exam Limitations: no limitations - Immun/Allergies/Home Medications Immunization: IMMUNIZATION HX Immunizations Up to Date Yes History of Influenza Vaccine Yes Hx Pneumococcal Vaccination No Allergies/Adverse Reactions: Allergies Allergy/AdvReac Type Severity Reaction Status Date / Time tramadol HCl [From Ultram] Allergy Mild Hives Verified 09/26/16 13:04 codeine [Codeine] AdvReac Mild HEMOPTYSIS Verified 09/26/16 13:04 Home Medications: HOME MEDICATIONS NK [No Home Medication] 08/20/16 [Last Taken Unknown] - History of Present Illness Narrative: pt here for neck pain. she states she may have turned her head the wrong way at work just prior to presentation to our ER and now she has right sided neck pain. Review of Systems - Review of Systems Constitutional: Present: no symptoms reported EYE: Present: no symptoms reported ENT: Present: no symptoms reported Respiratory: Present: no symptoms reported Cardiology: Present: no symptoms reported Gastrointestinal/Abdominal: Present: no symptoms reported Genitourinary: Present: no symptoms reported Musculoskeletal: Present: other - neck pain Skin: Present: no symptoms reported - Patient's Past Medical History Patient History - Medical: Anxiety, Chronic Pain, Depression, Migraines Patient History - Cardiac/Respiratory: No pertinent hx Patient History - Cancer: No Hx of Cancer Patient History - Surgical Procedures: Cholecystectomy, D & C Patient History - Other: None - Social History Living Situations: home Abuse History: No History of abuse Psych History: Hx of Anxiety, Hx of Depression Smoking Status: Never smoker Alcohol Use: none Drug Use: none - Immunizations Immunizations Up to Date: Yes Hx Pneumococcal Vaccination: No History of Influenza Vaccine: Yes Physical Exam - Physical Exam General Appearance: Present: wd/wn, alert, no apparent distress Ears, Nose, Throat: Present: normal ENT inspection, normal pharynx Neck: Present: normal inspection, other - pt is very point tender in the right upper trapezius region. she has muscle spasm in the corresponding region Respiratory: Present: no respiratory distress, normal breath sounds Cardiovascular/Chest: Present: regular rate, rhythm, no murmur ED Progress - Vital Signs Vital Signs: Vital Signs 09/26/16 09/26/16 13:00 15:18 Temperature 36.6 C Pulse Rate 88 81 Respiratory 15 14 Rate Blood Pressure 152/92 152/80 O2 Sat by Pulse 95 96 Oximetry - Progress/Reassessment Chief Complaint: Neck Pain/Injury Plan - Plan Plan: pt has muscle spasm and will be treated as such. She refused Flexeril stating she had some at home and refused Toradol shot stating she had Ibuprofen at home but asked for a note off work for today and tomorrow Departure Clinical Impression: Cervicalgia - Departure Disposition: Home self-care Condition: Good Instructions: Chronic Pain Referrals: Amanuel Ramirez DO [Primary Care Provider] -
--- OUTSIDE RECORDS SUMMARY | 2016-09-26 15:32 | XMS REPORT | Continuity of Care Document ---
:1980 Author Organization [facility] ([facility]) Address [address] [place] [address] Phone [phone] Care Team Providers Name Role Phone Amanuel Ramirez Primary Care Provider [phone] Source Comments This disclosure is being made pursuant to the Care Everywhere program, applicable federal and state laws, and may not contain all informaitonavailable regarding this patient.[facility] (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
== END 2016-09-26 15:35 | disposition home or self-care (01) ==
LOC: ER 12:38
DX: M54.2 Cervicalgia (principal)

== ENCOUNTER 2016-11-09 08:40 | Emergency (ER) | payer BC, MEDICAID ==
[2016-11-09] MEDS ORDERED: IBUPROFEN 400 MG TABLET PO ONE (09:19)
--- NOTE | 2016-11-09 09:26 | ERNOTE ---
Lower Extremity HPI - Narrative Date of Service: 11/09/16 - General Lower Extremities Pain: 1st toe: right Time Seen by Provider: 11/09/16 09:12 Source: patient Exam Limitations: no limitations - Immun/Allergies/Home Medications Immunizations: IMMUNIZATION HX Immunizations Up to Date Yes History of Influenza Vaccine Yes Hx Pneumococcal Vaccination No Allergies/Adverse Reactions: Allergies Allergy/AdvReac Type Severity Reaction Status Date / Time tramadol HCl [From Ultram] Allergy Mild Hives Verified 11/09/16 09:03 codeine [Codeine] AdvReac Mild HEMOPTYSIS Verified 11/09/16 09:03 Home Medications: HOME MEDICATIONS Acetaminophen [Tylenol] 650 mg PO PRN PRN 11/09/16 [Last Taken Unknown] Nabumetone 750 mg PO BID #60 tab 11/09/16 [Last Taken Unknown] - History of Present Illness Narrative: morning, woke up with lots of pain and tenderness in right great toe. No real injury. No prior. Tried over the counter. Crutches off and on. Now whole leg hurts, due to odd walking. 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 Occurred: other Location of Incident: home Method of Injury: Reports: no apparent injury Reason for Fall: Reports: other - no fall Loss of Consciousness: Reports: no loss of consciousness Modifying Factors - (Improves): Reports: rest Modifying Factors - (Worsens): Reports: jarring, movement Associated Symptoms: Denies: other injuries Other Injuries: Reports: none Subsequent Symptoms: Denies: sensory loss, numbness, motor loss Prior Treament: Denies: recently seen, similar symptoms before Review of Systems - Review of Systems Constitutional: Present: no symptoms reported EYE: Present: no symptoms reported ENT: Present: no symptoms reported Respiratory: Present: no symptoms reported Cardiology: Present: no symptoms reported Gastrointestinal/Abdominal: Present: no symptoms reported Genitourinary: Present: no symptoms reported Musculoskeletal: Present: See HPI Skin: Present: no symptoms reported Neurological: Present: no symptoms reported Endocrine: Present: no symptoms reported Hematologic/Lymphatic: Present: no symptoms reported Psych: Present: no symptoms reported All Other Systems: All systems neg except as marked - Patient's Past Medical History Patient History - Medical: Anxiety, Chronic Pain, Depression, Migraines Patient History - Cardiac/Respiratory: No pertinent hx Patient History - Cancer: No Hx of Cancer Patient History - Surgical Procedures: Cholecystectomy, D & C Patient History - Other: None LMP (females 10-50): 1 month - Social History Living Situations: home Abuse History: No History of abuse Psych History: Hx of Anxiety, Hx of Depression Smoking Status: Former smoker Alcohol Use: none Drug Use: none - Immunizations Immunizations Up to Date: Yes Hx Pneumococcal Vaccination: No History of Influenza Vaccine: Yes Physical Exam - Physical Exam General Appearance: Present: wd/wn, alert, no apparent distress Head Exam: Present: normal inspection, no evidence of injury Eye Exam: Normal inspection: bilateral, PERRL: bilateral, EOMI: bilateral Ears, Nose, Throat: Present: normal ENT inspection Neck: Present: normal inspection Respiratory: Present: no respiratory distress Cardiovascular/Chest: Present: regular rate, rhythm Extremity Exam: Present: normal inspection, other - tender right great toe MP joint Neurological Exam: Present: alert, oriented, normal mood/affect Skin Exam: Present: normal color, warm/dry ED Progress - Vital Signs Patient's Vital Signs:: I have reviewed the patient's vital signs. Vital Signs: Vital Signs 11/09/16 08:54 Temperature 36.9 C Pulse Rate 86 Respiratory 16 Rate Blood Pressure 140/81 O2 Sat by Pulse 98 Oximetry - X-Ray X-Ray #1 X-Ray: toe Interpretation: Interp. by me - non acute - Progress/Reassessment Chief Complaint: Foot Injury/Pain Departure Clinical Impression: Great toe pain Qualifiers: Laterality: right Qualified Code(s): M79.674 - Pain in right toe(s) - Departure Disposition: Home self-care Condition: Good Instructions: Musculoskeletal Pain Additional Instructions: No weight bearing on right foot. Heat in the morning, ice at night. Follow up with Dr. Ramirez in about 1 month. Referrals: Amanuel Ramirez DO [Primary Care Provider] - Prescriptions: Nabumetone 750 mg PO BID #60 tab
[2016-11-09] MEDS ORDERED: IBUPROFEN 400 MG TABLET ONE (09:28)
[2016-11-09 09:49] VITALS: BP 146/85
== END 2016-11-09 10:00 | disposition home or self-care (01) ==
LOC: ER 08:40
DX: M79.674 Pain in right toe(s) (principal); Z87.891 Personal history of nicotine dependence

== ENCOUNTER 2016-11-10 11:59 | Emergency (ER) | payer BC, MEDICAID ==
[2016-11-10] MEDS ORDERED: ACETAMINOPHEN 325 MG TABLET PO ONE (13:09)
[2016-11-10] MEDS ORDERED: predniSONE 20 MG TABLET PO ONE (13:09)
--- NOTE | 2016-11-10 13:12 | ERNOTE ---
Lower Extremity HPI - General Lower Extremities Pain: 1st toe: right Time Seen by Provider: 11/10/16 13:00 Source: patient Exam Limitations: no limitations - Immun/Allergies/Home Medications Immunizations: IMMUNIZATION HX Immunizations Up to Date Yes History of Influenza Vaccine Yes Hx Pneumococcal Vaccination No Allergies/Adverse Reactions: Allergies Allergy/AdvReac Type Severity Reaction Status Date / Time tramadol HCl [From Ultram] Allergy Mild Hives Verified 11/10/16 12:13 codeine [Codeine] AdvReac Mild HEMOPTYSIS Verified 11/10/16 12:13 Home Medications: HOME MEDICATIONS Acetaminophen [Tylenol] 650 mg PO PRN PRN 11/09/16 [Last Taken Unknown] Nabumetone 750 mg PO BID #60 tab 11/09/16 [Last Taken Unknown] predniSONE [Prednisone] 2 tab PO DAILY #8 tab 11/10/16 [Last Taken Unknown] - History of Present Illness Narrative: Patient started to have pain in her right first toe three days ago. She denies any injury, never had symptoms like that before. She was seen in the ER yesterday, had an Xray done, was diagnosed with arthritis and discharged on nabumetone. She states that since then the pain has increased and the first metacarpal pharyngeal joint is red and swollen. She had a child in April and has lost 35lbs since Review of Systems - Review of Systems Constitutional: Present: weight loss - intended. Absent: recent illness, fever , chills Respiratory: Absent: shortness of breath Cardiology: Absent: chest pain Gastrointestinal/Abdominal: Absent: nausea, vomiting, abdominal pain Genitourinary: Present: no symptoms reported Musculoskeletal: Present: See HPI Skin: Absent: rash Neurological: Absent: weakness, numbness - Patient's Past Medical History Patient History - Medical: Anxiety, Chronic Pain, Depression, Migraines Patient History - Cardiac/Respiratory: No pertinent hx Patient History - Cancer: No Hx of Cancer Patient History - Surgical Procedures: Cholecystectomy, D & C Patient History - Other: None LMP (females 10-50): 1 month - Social History Living Situations: home Abuse History: No History of abuse Psych History: Hx of Anxiety, Hx of Depression Alcohol Use: none Drug Use: none - Immunizations Immunizations Up to Date: Yes Hx Pneumococcal Vaccination: No History of Influenza Vaccine: Yes Physical Exam - Physical Exam General Appearance: Present: wd/wn, alert, no apparent distress, obese Respiratory: Present: no respiratory distress, lungs clear Extremity Exam: Present: normal except - - right first toe at metacarphalangeal joint swollen, tender, pain on movement, toe itself normal Neurological Exam: Present: alert, oriented, normal mood/affect, no motor/ sensory deficits Skin Exam: Present: normal color, warm/dry ED Progress - Results and Orders Patient's Lab Results:: I have reviewed the patient's lab results. - Vital Signs Patient's Vital Signs:: I have reviewed the patient's vital signs. Vital Signs: Vital Signs 11/10/16 12:10 Temperature 37.1 C Pulse Rate 87 Respiratory 16 Rate Blood Pressure 157/107 O2 Sat by Pulse 99 Oximetry - Progress/Reassessment Chief Complaint: Foot Injury/Pain Progress Note-Subjective: 11/10/16 14:05 discussed results with patient, consider gouty arthritis though uric acid normal Departure Clinical Impression: Arthritis of big toe - Departure Disposition: Home self-care Condition: Good Instructions: Arthritis, [id number], Form - Excuse from Work, School, or Physical Activity Additional Instructions: use the prednisone, continue nabumetone, take tylenol in addition as needed if your pain does not resolved over the next 3-5 days call your doctor for follow up Referrals: Amanuel Ramirez DO [Staff Physician] - Prescriptions: predniSONE [Prednisone] 2 tab PO DAILY #8 tab
[2016-11-10] MEDS ORDERED: ACETAMINOPHEN 325 MG TABLET ONE (13:36)
[2016-11-10] MEDS ORDERED: predniSONE 20 MG TABLET ONE (13:36)
[2016-11-10 13:37] LABS: Albumin * 3.8 gm/dl (3.4-5.0); Anion Gap 13.4 mmol/L (6.8-13.8); BUN/Creatinine Ratio 16.7 (9.0-21.6); Bilirubin, Total 0.3 mg/dL (0.0-1.1); CRP 1.4 mg/dL (0.0-0.9); Ca. Corrected For Albumin 8.9 mg/dL (8.4-10.2); Calcium * 9.1 mg/dL (7.9-10.9); Carbon Dioxide 26.9 mmol/L (24-32.6); Potassium 4.3 mmol/L (3.4-4.6); Uric Acid 3.9 mg/dL (2.6-7.2)
[2016-11-10 13:44] VITALS: BP 144/77
== END 2016-11-10 14:16 | disposition home or self-care (01) ==
LOC: ER 11:59
DX: M19.071 Primary osteoarthritis, right ankle and foot (principal)

== ENCOUNTER 2017-03-19 07:58 | Emergency (ER) | payer BC, MEDICAID ==
--- NOTE | 2017-03-19 08:42 | ERNOTE ---
Lower Extremity HPI - Narrative Date of Service: 03/19/17 - General Lower Extremities Pain: ankle: left Time Seen by Provider: 03/19/17 08:34 Source: patient Exam Limitations: no limitations - Immun/Allergies/Home Medications Immunizations: IMMUNIZATION HX Immunizations Up to Date Yes History of Influenza Vaccine No Hx Pneumococcal Vaccination Yes Allergies/Adverse Reactions: Allergies Allergy/AdvReac Type Severity Reaction Status Date / Time tramadol HCl [From Ultram] Allergy Mild Hives Verified 03/19/17 08:21 codeine [Codeine] AdvReac Mild HEMOPTYSIS Verified 03/19/17 08:21 Home Medications: HOME MEDICATIONS Ibuprofen [Motrin] 600 mg PO Q6H PRN #30 tab 03/19/17 [Last Taken Unknown] - History of Present Illness Narrative: Patient is a 36-year-old female who presents to the emergency room after sustaining a fall now complaining of left lateral ankle pain and right knee pain. He is not concerned so much of the right knee pain but her concern appears to be the ankle pain. She localizes her pain to the lateral aspect of the distal fibula, pain rated at moderate intensity, she denies taking any medications for pain and also denies able to put any weight. She reports some swelling of the lateral ankle region. She denies any open wounds, redness, fever, chills, night sweats Occurred: just prior to arrival, this morning Location of Incident: home Method of Injury: Reports: fell, twisted Reason for Fall: Reports: slipped Loss of Consciousness: Reports: no loss of consciousness Associated Symptoms: Reports: unable to bear weight, popping sensation Other Injuries: Reports: none Subsequent Symptoms: Denies: sensory loss, numbness, motor loss, bowel/bladder problem Review of Systems - Review of Systems Constitutional: Present: no symptoms reported EYE: Present: no symptoms reported ENT: Present: no symptoms reported Respiratory: Present: no symptoms reported Cardiology: Present: no symptoms reported Gastrointestinal/Abdominal: Present: no symptoms reported Genitourinary: Present: no symptoms reported Musculoskeletal: Present: See HPI Skin: Present: no symptoms reported Neurological: Present: no symptoms reported Endocrine: Present: no symptoms reported Hematologic/Lymphatic: Present: no symptoms reported Psych: Present: no symptoms reported - Patient's Past Medical History Patient History - Medical: Anxiety, Chronic Pain, Depression, Migraines Patient History - Cardiac/Respiratory: No pertinent hx Patient History - Cancer: No Hx of Cancer Patient History - Surgical Procedures: Cholecystectomy, D & C Patient History - Other: None LMP (females 10-50): 3 months - Social History Living Situations: home Abuse History: No History of abuse Psych History: Hx of Anxiety, Hx of Depression Smoking Status: Never smoker Alcohol Use: none Drug Use: none - Immunizations Immunizations Up to Date: Yes Hx Pneumococcal Vaccination: Yes History of Influenza Vaccine: No Physical Exam - Physical Exam General Appearance: Present: wd/wn, alert, no apparent distress Head Exam: Present: normal inspection, no evidence of injury Eye Exam: Normal inspection: bilateral, PERRL: bilateral, EOMI: bilateral Ears, Nose, Throat: Present: normal ENT inspection Neck: Present: normal inspection Respiratory: Present: no respiratory distress Cardiovascular/Chest: Present: regular rate, rhythm Gastrointestinal/Abdominal: Present: normal bowel sounds, nontender, nondistended, soft, no organomegaly Extremity Exam: Present: other - inspection of the left knee is unremarkable for any open wounds. She does have a dime-sized abrasion noted at the anterior aspect of the infrapatellar region. palpation of the joint line appears unremarkable for any pain. She appears able to have a good active range of motion of the right knee. Inspection of the left ankle appears within normal limits. She appears to be exquisitely tender lateral distal malleolus. She appears nontender at the medial malleolus on the base of the fifth metatarsal or the head of the fibula. Anterior-posterior sign is negative the left ankle. Neurological Exam: Present: alert, oriented, normal mood/affect, no motor/ sensory deficits Skin Exam: Present: normal color, warm/dry, other - she appears to have an abrasion at the right infrapatellar region. ED Progress - Results and Orders Patient's Lab Results:: I have reviewed the patient's lab results. - Vital Signs Patient's Vital Signs:: I have reviewed the patient's vital signs. Vital Signs: Vital Signs 03/19/17 08:00 Temperature 36.7 C Pulse Rate 83 Respiratory 16 Rate Blood Pressure 133/89 O2 Sat by Pulse 100 Oximetry - X-Ray X-Ray #1 X-Ray: ankle Interpretation: Interp. by me, Reviewed by me - Progress/Reassessment Chief Complaint: Lower Extremity Pain/ Injury Departure Clinical Impression: Left lateral ankle pain - Departure Disposition: Home self-care Condition: Stable Additional Instructions: Patient instructed to follow up with primary care physician in 7-10 days Referrals: Amanuel Ramirez DO [Primary Care Provider] - Prescriptions: Ibuprofen [Motrin] 600 mg PO Q6H PRN #30 tab PRN Reason: Pain
[2017-03-19 09:30] VITALS: BP 130/58
== END 2017-03-19 09:56 | disposition home or self-care (01) ==
LOC: ER 07:58
PROC: 2W3RX1Z Immobilization of Left Lower Leg using Splint (ICD-10-PCS; principal; 2017-03-19)
DX: M25.572 Pain in left ankle and joints of left foot (principal)